=== PATIENT | male | born 1965 | race Caucasian/White ===

== ENCOUNTER 2016-03-02 09:17 | Inpatient (IN) | payer OTHER ==
[2016-03-02 09:26] VITALS: BMI 36.8
--- NOTE | 2016-03-02 09:57 | HP ---
CIWA Score - CIWA Score Nausea/Vomitin-Mild Nausea/No Vomiting Muscle Tremors: 4-Moderate,w/Arms Extend Anxiety: 4-Mod. Anxious/Guarded Agitation: 1-Slight > Activity Paroxysmal Sweats: 1-Minimal Palms Moist Orientation: 1-Uncertain about Date Tacttile Disturbances: 1-Very Mild Itch/Numbness Auditory Disturbances: 1-Very Mild Visual Disturbances: 1-Very Mild Sensitivity Headache: 2-Mild CIWA-Ar Total Score: 17 Admission ROS BHS - HPI Chief Complaint: I want to stop drinking Allergies/Adverse Reactions: Allergies Allergy/AdvReac Type Severity Reaction Status Date / Time ibuprofen Allergy Severe Rash Verified 03/02/16 10:42 metronidazole [From Flagyl] Allergy Severe Rash Verified 03/02/16 10:42 History of Present Illness: 50 yo gentleman here for detox - previously here in 2014. No seizures but does have alcohol related black outs. Was in [facility] yesterday for RUQ pain and sent for detox. Also given Rx for penile yamilka. BGM = 225 - states he did not take metformin since yesterday. Noted BGMs on previous admission in 2014 were below 170 when on metformin. Exam Limitations: Clinical Condition - Ebola screening Have you traveled outside of the country in the last 21 days: No (N) Have you had contact with anyone from an Ebola affected area: No Have you been sick,other than usual withdrawal symptoms: No Do you have a fever: No - Review of Systems Constitutional: Loss of Appetite, Malaise, Changes in sleep, Weakness EENT: reports: No Symptoms Reported Respiratory: reports: No Symptoms reported Cardiac: reports: No Symptoms Reported GI: reports: Nausea, Vomiting, Indigestion, Other (RUQ discomfort) : reports: Burning Musculoskeletal: reports: No Symptoms Reported Integumentary: reports: Rash (penile rash) Neuro: reports: Headache Endocrine: reports: No Symptoms Reported Hematology: reports: No Symptoms Reported Psychiatric: reports: Mood/Affect Appropiate, Anxious Other Systems: Reviewed and Negative Patient History - Patient Medical History Hx Anemia: No Hx Asthma: No Hx Chronic Obstructive Pulmonary Disease (COPD): No Hx Cancer: No Hx Cardiac Disorders: No Hx Congestive Heart Failure: No Hx Hypertension: Yes (NON COMPLIANT) Hx Hypercholesterolemia: No Hx Pacemaker: No HX Cerebrovascular Accident: No Hx Seizures: No Hx Dementia: No Hx Diabetes: Yes (oral meds) Hx Gastrointestinal Disorders: No Hx Liver Disease: No Hx Genitourinary Disorders: No Hx Sexually Transmitted Disorders: No Hx Renal Disease (ESRD): No Hx Thyroid Disease: No Hx Human Immunodeficiency Virus (HIV): No Hx Hepatitis C: No Hx Depression: No Hx Suicide Attempt: No Hx Bipolar Disorder: No Hx Schizophrenia: No - Patient Surgical History Past Surgical History: Yes Hx Abdominal Surgery: Yes (EXPLORATORY SX FOR COLON INFECTION IN 2002) - PPD History Previous Implant?: Yes Documented Results: Negative w/proof Date: 06/29/14 PPD to be Administered?: Yes - Reproductive History Patient is a Female of Child Bearing Age (11 -55 yrs old): No (male) - Smoking Cessation Smoking history: Never smoked Have you smoked in the past 12 months: No Initiated information on smoking cessation: No - Substance & Tx. History Hx Alcohol Use: Yes Hx Substance Use: No Substance Use Type: Alcohol Hx Substance Use Treatment: Yes (detox) - Substances Abused Alcohol Route: Oral Frequency: Daily Amount used: liquor- 1 pint, beer- 1 six pack Age of first use: 18 Date of Last Use: 03/02/16 Family Disease History - Family Disease History Family Disease History: Diabetes: Mother, Heart Disease: Mother, Other: Father ( ALCOHOLIC), Brother ( cirrhosis) Admission Physical Exam S - Vital Signs Vital Signs: Vital Signs - 24 hr 03/02/16 09:23 Temperature 98.2 F Pulse Rate 101 H Respiratory 18 Rate Blood Pressure 126/87 - Physical General Appearance: Yes: Nourished, Appropriately Dressed, Mild Distress, Obese , Anxious HEENTM: Yes: EOMI, Hearing grossly Normal, Normal ENT Inspection, Normocephalic Respiratory: Yes: No Respiratory Distress, Rhonchi Neck: Yes: Within Normal Limits, No masses,lesions,Nodules Breast: Yes: Breast Exam Deferred Cardiology: Yes: Regular Rhythm, Regular Rate Abdominal: Yes: Soft, Protuberent, Surgical Scar Genitourinary: Yes: Burning, Yeast Infection Back: Yes: Normal Inspection Musculoskeletal: Yes: full range of Motion, Gait Steady Extremities: Yes: Normal Inspection, Non-Tender Neurological: Yes: Alert, Normal Mood/Affect, Numbness Integumentary: Yes: Normal Color, Warm, Rash (uncircumcised penis with erythematous rash under fore-skin - states itchy - has had for one day and given mycostatin cream) Lymphatic: Yes: Within Normal Limits - Diagnostic (1) HTN (hypertension) Current Visit: Yes Status: Chronic Qualifiers: Hypertension type: essential hypertension Qualified Code(s): I10 - Essential (primary) hypertension (2) Alcohol dependence with uncomplicated withdrawal Current Visit: Yes Status: Chronic (3) Diabetes mellitus treated with oral medication Current Visit: Yes Status: Chronic (4) Candidiasis of penis Current Visit: Yes Status: Acute Cleared for Admission [facility] - Detox or Rehab [facility] Level of Care: Medically Managed Detox Regimen/Protocol: Librium [facility] Breath Alcohol Content Breath Alcohol Content: 0.106 Urine Drug Screen - Results Urine Drug Screen Results: MET-Methamphetamine
[2016-03-02] MEDS ORDERED: guaiFENesin/D-METHORPHAN HB 10 ML UNIT-DOSE CUPS PO PRN (10:20)
[2016-03-02] MEDS ORDERED: MAGNESIUM CITRATE 300 ML BOTTLE PO PRN (10:20)
[2016-03-02] MEDS ORDERED: MENTHOL/PHENOL 1 EACH UD MM PRN (10:20)
[2016-03-02] MEDS ORDERED: MAGNESIUM HYDROX 2400MG/30ML ORAL SUSPENSION 30 ML CUP PO PRN (10:20)
[2016-03-02] MEDS ORDERED: LOPERAMIDE HCL 2 MG CAPSULE PO PRN (10:20)
[2016-03-02] MEDS ORDERED: P-EPHED 60MG/TRIPROLIDI 2.5MG TABLET PO PRN (10:20)
[2016-03-02] MEDS ORDERED: hydrOXYzine PAMOATE 50 MG CAPSULE (FP) PO PRN (10:20)
[2016-03-02] MEDS ORDERED: chlordiazePOXIDE HCL 25 MG CAPSULE PO PRN (10:20)
[2016-03-02] MEDS ORDERED: MAG HYDROX/AL HYDROX/SIMETH 30 ML UNIT-DOSE CUP PO PRN (10:20)
[2016-03-02] MEDS ORDERED: ACETAMINOPHEN 325 MG TABLET (FP) PO PRN (10:20)
[2016-03-02] MEDS ORDERED: chlordiazePOXIDE HCL 25 MG CAPSULE PO ONE (11:15)
[2016-03-02] MEDS: ENALAPRIL MALEATE 10 MG TABLET (FP) PO SCH ×2 (12:22→22:38)
[2016-03-02] MEDS: metFORMIN HCL 500 MG TABLET (FP) PO SCH ×2 (12:23→17:41)
[2016-03-02 13:22] LABS: URINE APPEARANCE CLEAR; URINE BILIRUBIN NEGATIVE (NEGATIVE); URINE BLOOD NEGATIVE (NEGATIVE); URINE COLOR YELLOW; URINE GLUCOSE (UA) 3+ (NEGATIVE); URINE KETONE TRACE (NEGATIVE); URINE LEUK ESTERASE NEGATIVE (NEGATIVE); URINE NITRITE NEGATIVE (NEGATIVE); URINE PROTEIN NEGATIVE (NEGATIVE); URINE UROBILINOGEN NEGATIVE E.U./dl (0.2-1.0)
[2016-03-02] MEDS: chlordiazePOXIDE HCL 25 MG CAPSULE PO SCH ×2 (17:41→22:39)
[2016-03-02] MEDS: NYSTATIN 100,000 UNIT/GM TOPICAL CREAM 15 GM TUBE TP SCH (22:38)
[2016-03-02] MEDS: THIAMINE HCL 100 MG TABLET (FP) PO SCH (22:38)
[2016-03-02] MEDS: diphenhydrAMINE HCL 50 MG CAPSULE PO PRN (22:39)
[2016-03-03] MEDS: metFORMIN HCL 500 MG TABLET (FP) PO SCH ×2 (05:00→06:21)
[2016-03-03] MEDS: chlordiazePOXIDE HCL 25 MG CAPSULE PO SCH ×4 (05:40→22:37)
[2016-03-03 09:53] LABS: MCH 29.3 pg (25.7-33.7); MCHC 33.5 g/dl (32.0-35.9); MEAN CELL VOLUME 87.4 fl (80-96); MEAN PLT VOLUME 9.4 fl (7.5-11.1); PLATELET COUNT 104 K/MM3 (134-434); RDW 13.2 % (11.9-15.9); WHITE BLOOD COUNT 5.2 K/mm3 (4.0-10.0)
[2016-03-03 10:02] LABS: ALBUMIN 3.4 g/dl (3.4-5.0); ANION GAP 11 (8-16); CALCIUM 8.3 mg/dL (8.5-10.1); CO2 26 mmol/L (21-32); GLUCOSE,RANDOM 245 mg/dL (74-106)
[2016-03-03 10:09] LABS: ALK PHOS 111 U/L (45-117); BILIRUBIN,TOTAL 1.3 mg/dL (0.2-1.0); CREATININE 0.7 mg/dL (0.7-1.3); SGOT/AST 36 U/L (15-37); SGPT/ALT 34 U/L (12-78); TOT PROT 7.4 g/dl (6.4-8.2)
[2016-03-03] MEDS: PRENATAL VITAMINS W/ FOLIC ACID TABLET (FP) PO SCH (10:40)
[2016-03-03] MEDS: ENALAPRIL MALEATE 10 MG TABLET (FP) PO SCH ×2 (10:40→22:36)
[2016-03-03] MEDS: NYSTATIN 100,000 UNIT/GM TOPICAL CREAM 15 GM TUBE TP SCH ×2 (10:40→22:39)
[2016-03-03] MEDS: ASPIRIN 81 MG CHEWABLE TABLETS PO SCH (10:41)
--- NOTE | 2016-03-03 14:14 | PN ---
S CIWA - CIWA Score Nausea/Vomitin Muscle Tremors: 3 Anxiety: 2 Agitation: 1-Slight > Activity Paroxysmal Sweats: 3 Orientation: 0-Oriented Tacttile Disturbances: 2-Mild Itch/Numbness/Burn Auditory Disturbances: 0-None Visual Disturbances: 0-None Headache: 0-None Present CIWA-Ar Total Score: 13 BHS Progress Note (SOAP) Subjective: Headache, Body Aches, Nausea, Tremors, Sweating, Diarrhea. Objective: 03/03/16 14:13 Vital Signs Temperature 99.4 F 03/03/16 13:19 Pulse Rate 129 H 03/03/16 13:19 Respiratory Rate 20 03/03/16 13:19 Blood Pressure 126/91 03/03/16 13:19 O2 Sat by Pulse Oximetry (%) Laboratory Last Values WBC 5.2 K/mm3 (4.0-10.0) 03/03/16 07:30 RBC 4.68 M/mm3 (4.00-5.60) 03/03/16 07:30 Hgb 13.7 GM/dL (11.7-16.9) D 03/03/16 07:30 Hct 40.9 % (35.4-49) 03/03/16 07:30 MCV 87.4 fl (80-96) 03/03/16 07:30 MCHC 33.5 g/dl (32.0-35.9) 03/03/16 07:30 RDW 13.2 % (11.9-15.9) 03/03/16 07:30 Plt Count 104 K/MM3 (134-434) L D 03/03/16 07:30 MPV 9.4 fl (7.5-11.1) 03/03/16 07:30 Sodium 136 mmol/L (136-145) 03/03/16 07:20 Potassium 3.4 mmol/L (3.5-5.1) L D 03/03/16 07:20 Chloride 99 mmol/L (98-107) 03/03/16 07:20 Carbon Dioxide 26 mmol/L (21-32) 03/03/16 07:20 Anion Gap 11 (8-16) 03/03/16 07:20 BUN 9 mg/dL (7-18) D 03/03/16 07:20 Creatinine 0.7 mg/dL (0.7-1.3) 03/03/16 07:20 Creat Clearance w eGFR > 60 (>60) 03/03/16 07:20 POC Glucometer 185 UNITS (()) 03/03/16 05:45 Random Glucose 245 mg/dL (74-106) H D 03/03/16 07:20 Calcium 8.3 mg/dL (8.5-10.1) L 03/03/16 07:20 Total Bilirubin 1.3 mg/dL (0.2-1.0) H 03/03/16 07:20 AST 36 U/L (15-37) D 03/03/16 07:20 ALT 34 U/L (12-78) D 03/03/16 07:20 Alkaline Phosphatase 111 U/L (45-117) 03/03/16 07:20 Total Protein 7.4 g/dl (6.4-8.2) 03/03/16 07:20 Albumin 3.4 g/dl (3.4-5.0) 03/03/16 07:20 Urine Color Yellow 03/02/16 10:26 Urine Appearance Clear 03/02/16 10:26 Urine pH 6.0 (5.0-8.0) 03/02/16 10:26 Ur Specific [place] 1.020 (1.001-1.035) 03/02/16 10:26 Urine Protein Negative (NEGATIVE) 03/02/16 10:26 Urine Glucose (UA) 3+ (NEGATIVE) H 03/02/16 10:26 Urine Ketones Trace (NEGATIVE) H 03/02/16 10:26 Urine Blood Negative (NEGATIVE) 03/02/16 10:26 Urine Nitrite Negative (NEGATIVE) 03/02/16 10:26 Urine Bilirubin Negative (NEGATIVE) 03/02/16 10:26 Urine Urobilinogen Negative E.U./dl (0.2-1.0) 03/02/16 10:26 Ur Leukocyte Esterase Negative (NEGATIVE) 03/02/16 10:26 LABS NOTED. Assessment: 03/03/16 14:14 WITHDRAWAL SYMPTOMS. Plan: CONTINUE DETOX. POTASSIUM, 20 WANDA X 1 NOW AND THEN BID AFTER. K LEVEL TO BE CHECKED AGAIN 03/05/16. ADVISED PT. TO FOLLOW-UP WITH PMD / REHAB MEDICAL PROVIDER AFTER DISCHARGE FOR GENERAL MEDICAL ASSESSMENT AND REGARDING ABNORMAL LAB VALUES.
[2016-03-03] MEDS ORDERED: POTASSIUM CHLORIDE TABS 20 MEQ TABLET.ER (FP) PO ONE (15:00)
[2016-03-03] MEDS: THIAMINE HCL 100 MG TABLET (FP) PO SCH (22:36)
[2016-03-03] MEDS: POTASSIUM CHLORIDE TABS 20 MEQ TABLET.ER (FP) PO SCH (22:37)
[2016-03-03] MEDS: diphenhydrAMINE HCL 50 MG CAPSULE PO PRN (22:38)
[2016-03-04] MEDS: chlordiazePOXIDE HCL 25 MG CAPSULE PO SCH ×2 (05:42→10:15)
[2016-03-04] MEDS: metFORMIN HCL 500 MG TABLET (FP) PO SCH ×2 (06:03→17:55)
[2016-03-04] MEDS: NYSTATIN 100,000 UNIT/GM TOPICAL CREAM 15 GM TUBE TP SCH ×2 (10:14→22:42)
[2016-03-04] MEDS: PRENATAL VITAMINS W/ FOLIC ACID TABLET (FP) PO SCH (10:15)
[2016-03-04] MEDS: ASPIRIN 81 MG CHEWABLE TABLETS PO SCH (10:15)
[2016-03-04] MEDS: ENALAPRIL MALEATE 10 MG TABLET (FP) PO SCH ×2 (10:15→22:42)
[2016-03-04] MEDS: POTASSIUM CHLORIDE TABS 20 MEQ TABLET.ER (FP) PO SCH ×2 (10:15→22:42)
--- NOTE | 2016-03-04 13:29 | PN ---
[facility] CIWA - CIWA Score Nausea/Vomitin-No Nausea/No Vomiting Muscle Tremors: 4-Moderate,w/Arms Extend Anxiety: 4-Mod. Anxious/Guarded Agitation: 4-Moderately Restless Paroxysmal Sweats: 3 Orientation: 0-Oriented Tacttile Disturbances: 0-None Auditory Disturbances: 0-None Visual Disturbances: 0-None Headache: 0-None Present CIWA-Ar Total Score: 15 BHS Progress Note (SOAP) Subjective: SWEATING,ANXIETY,TREMORS,INTERRUPTED SLEEP,RESTLESS. Objective: 03/04/16 13:28 Vital Signs - 8 hr 03/04/16 03/04/16 03/04/16 06:16 10:30 10:31 Temperature 96.7 F L 97.6 F 987.6 F H Pulse Rate 116 H 100 H 100 H Respiratory 16 20 20 Rate Blood Pressure 111/77 129/82 129/82 Laboratory Last Values WBC 5.2 K/mm3 (4.0-10.0) 03/03/16 07:30 RBC 4.68 M/mm3 (4.00-5.60) 03/03/16 07:30 Hgb 13.7 GM/dL (11.7-16.9) D 03/03/16 07:30 Hct 40.9 % (35.4-49) 03/03/16 07:30 MCV 87.4 fl (80-96) 03/03/16 07:30 MCHC 33.5 g/dl (32.0-35.9) 03/03/16 07:30 RDW 13.2 % (11.9-15.9) 03/03/16 07:30 Plt Count 104 K/MM3 (134-434) L D 03/03/16 07:30 MPV 9.4 fl (7.5-11.1) 03/03/16 07:30 Sodium 136 mmol/L (136-145) 03/03/16 07:20 Potassium 3.4 mmol/L (3.5-5.1) L D 03/03/16 07:20 Chloride 99 mmol/L (98-107) 03/03/16 07:20 Carbon Dioxide 26 mmol/L (21-32) 03/03/16 07:20 Anion Gap 11 (8-16) 03/03/16 07:20 BUN 9 mg/dL (7-18) D 03/03/16 07:20 Creatinine 0.7 mg/dL (0.7-1.3) 03/03/16 07:20 Creat Clearance w eGFR > 60 (>60) 03/03/16 07:20 POC Glucometer 192 UNITS (()) 03/04/16 05:44 Random Glucose 245 mg/dL (74-106) H D 03/03/16 07:20 Calcium 8.3 mg/dL (8.5-10.1) L 03/03/16 07:20 Total Bilirubin 1.3 mg/dL (0.2-1.0) H 03/03/16 07:20 AST 36 U/L (15-37) D 03/03/16 07:20 ALT 34 U/L (12-78) D 03/03/16 07:20 Alkaline Phosphatase 111 U/L (45-117) 03/03/16 07:20 Total Protein 7.4 g/dl (6.4-8.2) 03/03/16 07:20 Albumin 3.4 g/dl (3.4-5.0) 03/03/16 07:20 Urine Color Yellow 03/02/16 10:26 Urine Appearance Clear 03/02/16 10:26 Urine pH 6.0 (5.0-8.0) 03/02/16 10:26 Ur Specific [place] 1.020 (1.001-1.035) 03/02/16 10:26 Urine Protein Negative (NEGATIVE) 03/02/16 10:26 Urine Glucose (UA) 3+ (NEGATIVE) H 03/02/16 10:26 Urine Ketones Trace (NEGATIVE) H 03/02/16 10:26 Urine Blood Negative (NEGATIVE) 03/02/16 10:26 Urine Nitrite Negative (NEGATIVE) 03/02/16 10:26 Urine Bilirubin Negative (NEGATIVE) 03/02/16 10:26 Urine Urobilinogen Negative E.U./dl (0.2-1.0) 03/02/16 10:26 Ur Leukocyte Esterase Negative (NEGATIVE) 03/02/16 10:26 RPR Titer Nonreactive (NONREACTIVE) 03/03/16 07:20 LABS NOTED Assessment: 03/04/16 13:28 WITHDRAWAL SX. Plan: CONTINUE DETOX
[2016-03-04] MEDS: chlordiazePOXIDE 5 MG CAPSULE PO SCH ×2 (17:55→22:42)
[2016-03-04] MEDS: THIAMINE HCL 100 MG TABLET (FP) PO SCH (22:42)
[2016-03-04] MEDS: diphenhydrAMINE HCL 50 MG CAPSULE PO PRN (22:43)
[2016-03-05] MEDS: chlordiazePOXIDE 5 MG CAPSULE PO SCH (05:24)
[2016-03-05] MEDS: metFORMIN HCL 500 MG TABLET (FP) PO SCH (06:05)
[2016-03-05 06:40] VITALS: BP 98/70; PULSE 106; TEMP 98
--- NOTE | 2016-03-05 08:50 | PN ---
BHS Progress Note (SOAP) Subjective: ALERT,NO COMPLAINT Objective: 03/05/16 08:48 Vital Signs Temperature 98 F 03/05/16 06:40 Pulse Rate 106 H 03/05/16 06:40 Respiratory Rate 18 03/05/16 06:40 Blood Pressure 98/70 03/05/16 06:40 O2 Sat by Pulse Oximetry (%) 03/05/16 08:48 BGM 183 Assessment: 03/05/16 08:48 PATIENT IS SABLE FOR DISCHARGE,NO WITHDRAWAL SYMPTOM Plan: STABLE FOR DISCHARG \E TODAY,FOLLOW UP WITH PMD FOR MEDICAL PROBLEM
--- NOTE | 2016-03-05 08:55 | DS ---
[facility] Detox Discharge Summary Admission Date: 03/02/16 - History Present History: Alcohol Dependence Additional Comments: STABLE FOR DISCHARGE ,FOLLOW UP WITH AFTER CARE PROGRAM ARRANGEMENT AND PMD FOR MEDICAL PROBLEM,PATIENT HAS OWN MEDICATION AT HOME Pertinent Past History: [id number] HYPERTENSION - Physical Exam Results Vital Signs: Vital Signs Temperature 98 F 03/05/16 06:40 Pulse Rate 106 H 03/05/16 06:40 Respiratory Rate 18 03/05/16 06:40 Blood Pressure 98/70 03/05/16 06:40 O2 Sat by Pulse Oximetry (%) Pertinent Admission Physical Exam Findings: WITHDRAWAL SYMPTOM - Treatment Hospital Course: Detox Protocol Followed, Detoxed Safely, Responded well, Discharged Condition Good Patient has Accepted a Rehab Referral to: DECLINED - Medication Discharge Medications: Ambulatory Orders Enalapril Maleate [Vasotec -] 10 mg PO BID #0 tablet 07/01/14 Metformin HCl [Glucophage -] 500 mg PO BID #60 tablet 07/01/14 Aspirin [ASA -] 81 mg PO DAILY 03/02/16 Clotrimazole [Lotrimin 1% Solution -] 1 applic TP DAILY 03/02/16 Nystatin Cream [Mycostatin Cream -] 1 applic TP BID #1 applic 03/05/16 - AMA Did Patient Leave Against Medical Advice: No
[2016-03-05] MEDS: POTASSIUM CHLORIDE TABS 20 MEQ TABLET.ER (FP) PO SCH (09:04)
[2016-03-05] MEDS: NYSTATIN 100,000 UNIT/GM TOPICAL CREAM 15 GM TUBE TP SCH (09:04)
[2016-03-05] MEDS: ASPIRIN 81 MG CHEWABLE TABLETS PO SCH (09:05)
[2016-03-05] MEDS: PRENATAL VITAMINS W/ FOLIC ACID TABLET (FP) PO SCH (09:05)
[2016-03-05] MEDS: ENALAPRIL MALEATE 10 MG TABLET (FP) PO SCH (09:05)
[2016-03-05] MEDS ORDERED: chlordiazePOXIDE HCL 10 MG CAPSULE PO SCH (17:00)
== END 2016-03-05 09:06 | disposition home or self-care (01) | DRG 775 ==
LOC: YASAS 09:17 → Y3N 10:21
PROVIDERS: ADMIT Internal Medicine; ATTEND Internal Medicine
PROC: HZ2ZZZZ Detoxification Services for Substance Abuse Treatment (ICD-10-PCS; principal; 2016-03-02)
DX: F10.230 Alcohol dependence with withdrawal, uncomplicated (principal); E11.9 Type 2 diabetes mellitus without complications; I10 Essential (primary) hypertension; Z91.14 Patient's other noncompliance with medication regimen; E66.9 Obesity, unspecified; Z68.36 Body mass index [BMI] 36.0-36.9, adult; B37.49 Other urogenital candidiasis
CPT/HCPCS: 36415; 80053; 81003; 85027; 86593; 93005; 93010

== ENCOUNTER 2021-07-15 21:41 | Inpatient (IN) | payer OTHER ==
[2021-07-15 22:26] VITALS: BMI 32.3
[2021-07-15] MEDS ORDERED: ONDANSETRON *ODT* 4 MG TABLET SL PRN (22:38)
[2021-07-15] MEDS ORDERED: chlordiazePOXIDE HCL 25 MG CAPSULE PO PRN (22:38)
[2021-07-15] MEDS ORDERED: DICYCLOMINE HCL 10 MG CAPSULE PO PRN (22:38)
[2021-07-15] MEDS ORDERED: BENZOCAINE/MENTHOL (CHLORASEPTIC ) LOZENGE MM PRN (22:38)
[2021-07-15] MEDS ORDERED: MAGNESIUM CITRATE 300 ML BOTTLE PO PRN (22:38)
[2021-07-15] MEDS ORDERED: MAGNESIUM HYDROX 2400MG/30ML ORAL SUSPENSION 30 ML CUP PO PRN (22:38)
[2021-07-15] MEDS ORDERED: MAG HYDROX/AL HYDROX/SIMETH 30 ML UNIT-DOSE CUP PO PRN (22:38)
[2021-07-15] MEDS ORDERED: LOPERAMIDE HCL 2 MG CAPSULE PO PRN (22:38)
[2021-07-15] MEDS ORDERED: ACETAMINOPHEN 325 MG TABLET (FP) PO PRN (22:38)
[2021-07-15] MEDS ORDERED: BISMUTH SUBSALICYLATE 524 MG/30 ML PO PRN (22:38)
[2021-07-15] MEDS: chlordiazePOXIDE HCL 25 MG CAPSULE PO SCH (23:48)
[2021-07-15] MEDS: METHOCARBAMOL 500 MG TABLET PO PRN (23:48)
[2021-07-16] MEDS: chlordiazePOXIDE HCL 25 MG CAPSULE PO SCH ×4 (05:23→22:21)
[2021-07-16 09:48] LABS: HEMATOCRIT 40.3 % (35.4-49); HEMOGLOBIN 13.2 GM/dL (11.7-16.9); MCH 28.3 pg (25.7-33.7); MCHC 32.8 g/dl (32.0-35.9); MEAN CELL VOLUME 86.3 fl (80-96); MEAN PLT VOLUME 8.8 fl (7.5-11.1); PLATELET COUNT 134 10^3/uL (134-434); RBC 4.67 M/mm3 (4.00-5.60); RDW 13.6 % (11.9-15.9); WHITE BLOOD COUNT 5.1 K/mm3 (4.0-10.0)
[2021-07-16 09:49] LABS: CALCIUM 8.3 mg/dL (8.5-10.1)
[2021-07-16 09:50] LABS: ALBUMIN 3.4 g/dl (3.4-5.0); BLOOD UREA NITROGEN 14.9 mg/dL (7-18)
[2021-07-16 09:54] LABS: CREATININE 0.7 mg/dL (0.55-1.3)
[2021-07-16 09:55] LABS: TOT PROT 7.4 g/dl (6.4-8.2)
[2021-07-16 09:56] LABS: BILIRUBIN,TOTAL 0.8 mg/dL (0.2-1)
[2021-07-16] MEDS: PRENATAL VITAMINS W/ FOLIC ACID TABLET (FP) PO SCH (10:21)
[2021-07-16] MEDS: ACETAMINOPHEN 325 MG TABLET (FP) PO PRN (10:23)
[2021-07-16] MEDS: INSULIN SLIDING SCALE (NOVOLOG) 1 VIAL SQ SCH (20:38)
[2021-07-16] MEDS: MELATONIN 5 MG TABLETS PO SCH (22:21)
[2021-07-16] MEDS: THIAMINE HCL 100 MG TABLET (FP) PO SCH (22:21)
[2021-07-17] MEDS: chlordiazePOXIDE HCL 25 MG CAPSULE PO SCH ×4 (05:06→23:11)
[2021-07-17] MEDS: INSULIN SLIDING SCALE (NOVOLOG) 1 VIAL SQ SCH ×3 (06:42→18:44)
[2021-07-17] MEDS: PRENATAL VITAMINS W/ FOLIC ACID TABLET (FP) PO SCH (10:34)
[2021-07-17] MEDS: METHOCARBAMOL 500 MG TABLET PO PRN (10:34)
[2021-07-17] MEDS ORDERED: ASPIRIN 81 MG CHEWABLE TABLETS PO SCH (16:15)
[2021-07-17] MEDS: metFORMIN HCL 500 MG TABLET (FP) PO SCH (18:37)
[2021-07-17] MEDS: MELATONIN 5 MG TABLETS PO SCH (22:16)
[2021-07-17] MEDS: THIAMINE HCL 100 MG TABLET (FP) PO SCH (22:17)
[2021-07-17] MEDS: ENALAPRIL MALEATE 10 MG TABLET PO SCH (22:17)
[2021-07-18] MEDS ORDERED: chlordiazePOXIDE HCL 10 MG CAPSULE PO PRN
[2021-07-18] MEDS: chlordiazePOXIDE HCL 10 MG CAPSULE PO SCH ×4 (05:36→22:09)
[2021-07-18] MEDS ORDERED: INSULIN SLIDING SCALE (NOVOLOG) 1 VIAL SQ ONE (06:26)
[2021-07-18] MEDS: metFORMIN HCL 500 MG TABLET (FP) PO SCH ×2 (06:26→17:59)
[2021-07-18] MEDS: INSULIN SLIDING SCALE (NOVOLOG) 1 VIAL SQ SCH ×3 (06:27→18:12)
[2021-07-18] MEDS: ENALAPRIL MALEATE 10 MG TABLET PO SCH ×2 (10:23→22:09)
[2021-07-18] MEDS: PRENATAL VITAMINS W/ FOLIC ACID TABLET (FP) PO SCH (10:23)
[2021-07-18] MEDS: MELATONIN 5 MG TABLETS PO SCH (22:09)
[2021-07-18] MEDS: THIAMINE HCL 100 MG TABLET (FP) PO SCH (22:09)
[2021-07-18] MEDS: ACETAMINOPHEN 325 MG TABLET (FP) PO PRN (22:10)
[2021-07-19] MEDS: chlordiazePOXIDE HCL 10 MG CAPSULE PO SCH ×2 (05:38→17:59)
[2021-07-19] MEDS: metFORMIN HCL 500 MG TABLET (FP) PO SCH ×2 (06:43→17:59)
[2021-07-19] MEDS: INSULIN SLIDING SCALE (NOVOLOG) 1 VIAL SQ SCH ×3 (06:44→18:24)
[2021-07-19] MEDS: PRENATAL VITAMINS W/ FOLIC ACID TABLET (FP) PO SCH (10:19)
[2021-07-19] MEDS: ENALAPRIL MALEATE 10 MG TABLET PO SCH ×2 (10:19→22:23)
[2021-07-19] MEDS: ACETAMINOPHEN 325 MG TABLET (FP) PO PRN (22:22)
[2021-07-19] MEDS: THIAMINE HCL 100 MG TABLET (FP) PO SCH (22:23)
[2021-07-19] MEDS: MELATONIN 5 MG TABLETS PO SCH (22:23)
[2021-07-20] MEDS ORDERED: chlordiazePOXIDE HCL 10 MG CAPSULE PO ONE (05:00)
[2021-07-20 06:44] VITALS: BP 86/58; PULSE 72; TEMP 97.1
[2021-07-20] MEDS: INSULIN SLIDING SCALE (NOVOLOG) 1 VIAL SQ SCH (07:13)
[2021-07-20] MEDS: metFORMIN HCL 500 MG TABLET (FP) PO SCH (07:13)
[2021-07-20] MEDS: PRENATAL VITAMINS W/ FOLIC ACID TABLET (FP) PO SCH (09:38)
[2021-07-20] MEDS: ENALAPRIL MALEATE 10 MG TABLET PO SCH (09:38)
== END 2021-07-20 09:44 | disposition home or self-care (01) | DRG 775 ==
LOC: YASAS 21:41 → Y3N 22:42
PROVIDERS: ADMIT Allergy & Immunology; ATTEND Surgery
PROC: HZ2ZZZZ Detoxification Services for Substance Abuse Treatment (ICD-10-PCS; principal; 2021-07-15)
DX: F10.230 Alcohol dependence with withdrawal, uncomplicated (principal); F32.A Depression, unspecified; G47.00 Insomnia, unspecified; I10 Essential (primary) hypertension; E78.5 Hyperlipidemia, unspecified; E11.9 Type 2 diabetes mellitus without complications; Z79.4 Long term (current) use of insulin; R56.9 Unspecified convulsions; E66.9 Obesity, unspecified; Z68.32 Body mass index [BMI] 32.0-32.9, adult; Z88.8 Allergy status to other drugs, medicaments and biological substances
CPT/HCPCS: 36415; 80053; 82962; 85027; 86780; 93005; 93010; C9803-CS; U0003; U0005

== ENCOUNTER 2022-11-16 10:31 | Inpatient (IN) | payer OTHER ==
[2022-11-16 11:02] VITALS: BMI 30.6
[2022-11-16] MEDS ORDERED: ONDANSETRON *ODT* 4 MG TABLET SL PRN (11:21)
[2022-11-16] MEDS ORDERED: BENZOCAINE/MENTHOL (CHLORASEPTIC ) LOZENGE MM PRN (11:21)
[2022-11-16] MEDS ORDERED: guaiFENesin 600 MG TABLET.ER (FP) PO PRN (11:21)
[2022-11-16] MEDS ORDERED: ACETAMINOPHEN 325 MG TABLET (FP) PO PRN (11:21)
[2022-11-16] MEDS ORDERED: POLYETHYLENE GLYCOL (HEALTHYLAX) 3350 17 GM PACKET PO PRN (11:21)
[2022-11-16] MEDS ORDERED: NALOXONE HCL (KLOXXADO) 8 MG SPRAY NS PRN (11:21)
[2022-11-16] MEDS ORDERED: DICYCLOMINE HCL 10 MG CAPSULE PO PRN (11:21)
[2022-11-16] MEDS ORDERED: LOPERAMIDE HCL 2 MG CAPSULE PO PRN (11:21)
[2022-11-16] MEDS ORDERED: MAG HYDROX/AL HYDROX/SIMETH 30 ML UNIT-DOSE CUP PO PRN (11:21)
[2022-11-16] MEDS ORDERED: BENZONATATE 200 MG CAPSULE PO PRN (11:21)
[2022-11-16] MEDS ORDERED: MAGNESIUM HYDROX 2400MG/30ML ORAL SUSPENSION 30 ML CUP PO PRN (11:21)
[2022-11-16] MEDS ORDERED: chlordiazePOXIDE HCL 25 MG CAPSULE PO PRN (11:21)
[2022-11-16] MEDS ORDERED: NALOXONE HCL 0.4 MG/ML VIAL IM PRN (11:21)
[2022-11-16] MEDS: METHOCARBAMOL 500 MG TABLET PO PRN (12:23)
[2022-11-16] MEDS ORDERED: chlordiazePOXIDE HCL 25 MG CAPSULE ONE (12:24)
[2022-11-16] MEDS ORDERED: METHOCARBAMOL 500 MG TABLET ONE (12:24)
[2022-11-16] MEDS ORDERED: ASPIRIN 81 MG CHEWABLE TABLETS PO SCH (13:15)
[2022-11-16] MEDS: chlordiazePOXIDE HCL 25 MG CAPSULE PO SCH ×2 (16:57→22:09)
[2022-11-16] MEDS: metFORMIN HCL 500 MG TABLET (FP) PO SCH (16:57)
[2022-11-16] MEDS: THIAMINE HCL 100 MG TABLET (FP) PO SCH (22:09)
[2022-11-16] MEDS: MELATONIN 5 MG TABLETS PO SCH (22:10)
[2022-11-17] MEDS: hydrOXYzine PAMOATE 25 MG CAPSULE (FP) PO PRN (00:38)
[2022-11-17] MEDS: chlordiazePOXIDE HCL 25 MG CAPSULE PO SCH ×4 (05:37→22:16)
[2022-11-17] MEDS: metFORMIN HCL 500 MG TABLET (FP) PO SCH ×2 (06:04→17:23)
[2022-11-17] MEDS: PRENATAL VITAMINS W/ FOLIC ACID TABLET (FP) PO SCH (10:12)
[2022-11-17] MEDS: METHOCARBAMOL 500 MG TABLET PO PRN (10:12)
[2022-11-17 11:54] LABS: HEMATOCRIT 34.4 % (35.4-49); HEMOGLOBIN 11.8 GM/dL (11.7-16.9); MCH 27.9 pg (25.7-33.7); MCHC 34.1 g/dl (32.0-35.9); MEAN CELL VOLUME 81.8 fl (80-96); MEAN PLT VOLUME 8.6 fl (7.5-11.1); PLATELET COUNT 62 10^3/uL (134-434); RBC 4.21 M/mm3 (4.00-5.60); RDW 13.8 % (11.9-15.9); WHITE BLOOD COUNT 4.1 K/mm3 (4.0-10.0)
[2022-11-17 11:55] LABS: POTASSIUM 3.7 mmol/L (3.5-5.1)
[2022-11-17 12:05] LABS: BLOOD UREA NITROGEN 12.3 mg/dL (7-18); CALCIUM 7.8 mg/dL (8.5-10.1)
[2022-11-17 12:08] LABS: CREATININE 0.7 mg/dL (0.55-1.3)
[2022-11-17 12:09] LABS: BILIRUBIN,TOTAL 1.4 mg/dL (0.2-1); TOT PROT 6.8 g/dl (6.4-8.2)
[2022-11-17] MEDS: MELATONIN 5 MG TABLETS PO SCH (22:16)
[2022-11-17] MEDS: THIAMINE HCL 100 MG TABLET (FP) PO SCH (22:16)
[2022-11-18] MEDS: METHOCARBAMOL 500 MG TABLET PO PRN (03:40)
[2022-11-18] MEDS: hydrOXYzine PAMOATE 25 MG CAPSULE (FP) PO PRN (03:40)
[2022-11-18] MEDS: chlordiazePOXIDE HCL 25 MG CAPSULE PO SCH ×4 (05:25→22:24)
[2022-11-18] MEDS: metFORMIN HCL 500 MG TABLET (FP) PO SCH ×2 (06:01→17:16)
[2022-11-18] MEDS: PRENATAL VITAMINS W/ FOLIC ACID TABLET (FP) PO SCH (10:31)
[2022-11-18] MEDS: THIAMINE HCL 100 MG TABLET (FP) PO SCH (22:24)
[2022-11-18] MEDS: MELATONIN 5 MG TABLETS PO SCH (22:25)
[2022-11-19] MEDS ORDERED: chlordiazePOXIDE HCL 10 MG CAPSULE PO PRN
[2022-11-19] MEDS: hydrOXYzine PAMOATE 25 MG CAPSULE (FP) PO PRN ×2 (02:27→10:11)
[2022-11-19] MEDS: METHOCARBAMOL 500 MG TABLET PO PRN ×2 (02:27→10:11)
[2022-11-19] MEDS: chlordiazePOXIDE HCL 10 MG CAPSULE PO SCH ×4 (05:31→22:04)
[2022-11-19] MEDS: metFORMIN HCL 500 MG TABLET (FP) PO SCH ×2 (07:19→17:07)
[2022-11-19] MEDS: PRENATAL VITAMINS W/ FOLIC ACID TABLET (FP) PO SCH (10:11)
[2022-11-19] MEDS: MELATONIN 5 MG TABLETS PO SCH (22:05)
[2022-11-19] MEDS: THIAMINE HCL 100 MG TABLET (FP) PO SCH (22:06)
[2022-11-20] MEDS: chlordiazePOXIDE HCL 10 MG CAPSULE PO SCH ×2 (05:20→17:17)
[2022-11-20] MEDS: metFORMIN HCL 500 MG TABLET (FP) PO SCH ×2 (06:54→17:16)
[2022-11-20] MEDS: PRENATAL VITAMINS W/ FOLIC ACID TABLET (FP) PO SCH (10:05)
[2022-11-20 11:03] LABS: HEMATOCRIT 38.4 % (35.4-49); HEMOGLOBIN 12.9 GM/dL (11.7-16.9); MCH 28.1 pg (25.7-33.7); MCHC 33.5 g/dl (32.0-35.9); MEAN CELL VOLUME 83.8 fl (80-96); MEAN PLT VOLUME 8.8 fl (7.5-11.1); PLATELET COUNT 74 10^3/uL (134-434); RBC 4.58 M/mm3 (4.00-5.60); RDW 14.6 % (11.9-15.9); WHITE BLOOD COUNT 5.1 K/mm3 (4.0-10.0)
[2022-11-20 11:06] LABS: POTASSIUM 4.1 mmol/L (3.5-5.1)
[2022-11-20 11:10] LABS: ALBUMIN 3.4 g/dl (3.4-5.0); BLOOD UREA NITROGEN 10.2 mg/dL (7-18); CALCIUM 8.5 mg/dL (8.5-10.1)
[2022-11-20 11:13] LABS: CREATININE 0.7 mg/dL (0.55-1.3)
[2022-11-20 11:15] LABS: BILIRUBIN,TOTAL 0.7 mg/dL (0.2-1); TOT PROT 7.6 g/dl (6.4-8.2)
[2022-11-20] MEDS: MELATONIN 5 MG TABLETS PO SCH (22:09)
[2022-11-20] MEDS: THIAMINE HCL 100 MG TABLET (FP) PO SCH (22:09)
[2022-11-20] MEDS: hydrOXYzine PAMOATE 25 MG CAPSULE (FP) PO PRN (23:15)
[2022-11-21] MEDS ORDERED: chlordiazePOXIDE HCL 10 MG CAPSULE PO ONE (05:00)
[2022-11-21] MEDS: metFORMIN HCL 500 MG TABLET (FP) PO SCH (07:36)
[2022-11-21 09:18] VITALS: BP 114/86; PULSE 95; RESP 18; TEMP 97.5
[2022-11-21] MEDS: PRENATAL VITAMINS W/ FOLIC ACID TABLET (FP) PO SCH (10:21)
== END 2022-11-21 10:56 | disposition home or self-care (01) | DRG 775 ==
LOC: YASAS 10:31 → Y6N 11:38
PROVIDERS: ADMIT Allergy & Immunology; ATTEND Surgery
PROC: HZ2ZZZZ Detoxification Services for Substance Abuse Treatment (ICD-10-PCS; principal; 2022-11-16)
DX: F10.230 Alcohol dependence with withdrawal, uncomplicated (principal); I10 Essential (primary) hypertension; E78.2 Mixed hyperlipidemia; E11.9 Type 2 diabetes mellitus without complications; Z79.84 Long term (current) use of oral hypoglycemic drugs; Z88.8 Allergy status to other drugs, medicaments and biological substances
CPT/HCPCS: 36415; 80053; 82962; 85027; 86780; 87635